=== PATIENT | male | born 1955 | race Caucasian/White ===

== ENCOUNTER 2024-06-28 08:51 | Emergency (ER) | payer MEDICARE, SELFPAY ==
[2024-06-28 08:58] VITALS: BP 179/89; PULSE 76; TEMP 36.6; O2SAT 99; BMI 25.8
[2024-06-28] MEDS: KETOROLAC TROMETHAMINE 30 MG/ML VIAL IM (10:09)
[2024-06-28] MEDS: ORPHENADRINE 60 MG/ 2 ML VIAL IM (10:09)
--- NOTE | 2024-06-28 10:10 | ED_ITS ---
HPI HPI - Back Pain/Injury General Chief Complaint: Back Pain/Injury Stated Complaint: BACK PAIN, LEG PAIN Time Seen by Provider: 06/28/24 09:02 Source: patient Mode of arrival: walk-in Limitations: no limitations History of Present Illness HPI Narrative: 68-year-old male to the emergency department chief complaint of sciatica. Patient reports he has a long history of sciatica. Reports that last acted up a few weeks ago and lasted approximately 2 weeks. Patient reports he is in town visiting family from [place]. He reports that he had a flareup of his typical sciatica. No numbness, weakness, tingling. He has a shooting pain down his buttock that radiates into his lower leg. He denies any bowel bladder incontinence or retention. Denies any saddle anesthesia. No history of cancer. No recent falls or injuries. Patient to the emergency department today as his is flying out to drive him back to [place]. That it hurts to sit and he does not believe he is going to build to make it without some medications. Related Data Home Medications ?Medication ?Instructions ?Recorded ?Confirmed empagliflozin 25 mg tablet 25 mg PO DAILY 06/28/24 06/28/24 (Jardiance) fenofibrate nanocrystallized 48 mg 48 mg PO DAILY 06/28/24 06/28/24 tablet losartan 100 1 tab PO DAILY 06/28/24 06/28/24 mg-hydrochlorothiazide 12.5 mg tablet metoprolol succinate 25 mg 25 mg PO DAILY 06/28/24 06/28/24 tablet,extended release 24 hr rosuvastatin 10 mg tablet 10 mg PO DAILY 06/28/24 06/28/24 sitagliptin phos 50 mg-metformin 1 tab PO DAILY 06/28/24 06/28/24 ER 1,000 mg tablet,extend rel 24h mp (Janumet XR) Previous Rx's ?Medication ?Instructions ?Recorded cyclobenzaprine 5 mg tablet 5 mg PO BID PRN muscle spasm #14 06/28/24 tabs lidocaine 5 % topical patch See Rx Instructions topical 06/28/24 (Lidoderm) .COMPLEX #7 ea methylprednisolone 4 mg tablets in 4 mg PO DAILY #21 ea 06/28/24 a dose pack (Medrol (Pee)) naproxen 500 mg tablet 500 mg PO BID PRN pain #14 tabs 06/28/24 oxycodone-acetaminophen 5 mg-325 1 tab PO Q6H PRN pain #8 tabs 06/28/24 mg tablet (Percocet) Allergies Allergy/AdvReac Type Severity Reaction Status Date / Time No Known Drug Allergies Allergy Verified 06/28/24 08:58 Opioid HPI Opioid Management Most Recent Opioid Data: No Data to Display Review of Systems ROS Status of ROS 10 or more systems reviewed and unremark able except as noted in history and below Exam Narrative Exam Narrative: VITALS: I have reviewed the triage vital signs. GENERAL: Well developed, well appearing adult in no acute distress. NEURO: Alert and oriented. Moves all extremities. Face is symmetric and expressive. Patellar reflexes brisk and equal bilaterally. Normal gait. Plantar flexion/dorsiflexion, knee flexion/extension, hip flexion/extension are grossly intact with 5/5 strength. Sensation is intact across the bilateral lower extremities. Left-sided SI tenderness. SPINE: No midline cervical, thoracic, or lumbar tenderness. No step-off or deformities. No paraspinal muscle tenderness or increased tone. EYES: PERRL. No scleral icterus or conjunctival injection. No discharge. HENT: Normocephalic, atraumatic. Hearing is grossly intact. Nares grossly patent and without discharge. Mucous membranes moist. NECK: No JVD. Patient moves neck without restriction. CARDIO: Rhythm regular. Normal rate. No murmur, rub, or gallop. Pulses equal bilaterally in the upper and lower extremity. No lower extremity edema. PULM: Lungs clear to auscultation in all almanzar. No wheezes, rales, or rhonchi. No conversational dyspnea. No splinting, stridor, or accessory muscle use. GI/: Abdomen is soft and non-tender. Normoactive bowel sounds. No flank tenderness. EXTREMITIES: Symmetric muscle bulk. No joint swelling. No clubbing, cyanosis, or deformity. SKIN: Warm and dry. Normal turgor. No rash or lesions appreciated. PSYCH: Mood, affect, and interaction is appropriate to the setting. Constitutional Vital Signs, click to edit/add: Last Vital Signs Temp 97.8 F 06/28/24 08:58 Pulse 76 06/28/24 08:58 Resp 18 06/28/24 08:58 BP 179/89 H 06/28/24 08:58 Pulse Ox 99 06/28/24 08:58 O2 Del Method Room Air 06/28/24 08:58 Course Vital Signs Vital signs: Vital Signs Temperature 97.8 F 06/28/24 08:58 Pulse Rate 76 06/28/24 08:58 Respiratory Rate 18 06/28/24 08:58 Blood Pressure 179/89 H 06/28/24 08:58 Pulse Oximetry 99 06/28/24 08:58 Oxygen Delivery Method Room Air 06/28/24 08:58 Temperature 97.8 F 06/28/24 08:58 Pulse Rate 76 06/28/24 08:58 Respiratory Rate 18 06/28/24 08:58 Blood Pressure 179/89 H 06/28/24 08:58 Pulse Oximetry 99 06/28/24 08:58 Oxygen Delivery Method Room Air 06/28/24 08:58 MDM - Back Pain/Injury MDM Narrative Medical decision making narrative: Well-appearing 68-year-old male to the emergency department with typical sciatic symptoms for him. Vital stable, the patient is afebrile. He is neurovascularly intact. There are no red flags by history or exam for cord compressive lesion. No indication for imaging at this time. Patient agrees with this plan. Will treat symptomatically. Norflex and Toradol given intramuscularly in the ER. He is a very well-controlled diabetic. Risk-benefit discussion of steroids was had. Risk-benefit discussion of NSAIDs was had. Risk-benefit discussion of opiate medication was had. Decision was made to treat with a Medrol Dosepak, naproxen, Lidoderm patch, Flexeril, oxycodone as needed. [place] was [place] at time of encounter/ [place]. Return precautions were discussed. All questions were answered. Patient was discharged home. Medical Records Attestation: I reviewed the patient's medical records. Lab Data Attestation: I reviewed the patient's lab results. Discharge Plan Discharge Stand Alone Forms: Portal Instructions Chief Complaint: Back Pain/Injury Clinical Impression: Sciatica Patient Disposition: Home, Self-Care Time of Disposition Decision: 10:00 Condition: Good Mode of Transportation: Private Vehicle Prescriptions / Home Meds: New methylprednisolone [Medrol (Pee)] 4 mg tablets,dose pack 4 mg PO DAILY Qty: 21 0RF Rx Instructions: TAKE PER DOSEPAK INSTRUCTIONS naproxen 500 mg tablet 500 mg PO BID PRN (Reason: pain) Qty: 14 0RF lidocaine [Lidoderm] 5 % adhesive patch,medicated See Rx Instructions topical .COMPLEX Qty: 7 0RF Rx Instructions: leave on most painful area for up to 12 hrs cyclobenzaprine 5 mg tablet 5 mg PO BID PRN (Reason: muscle spasm) Qty: 14 0RF oxycodone-acetaminophen [Percocet] 5-325 mg tablet 1 tab PO Q6H PRN (Reason: pain) Qty: 8 0RF No Action Jardiance 25 mg tablet 25 mg PO DAILY fenofibrate nanocrystallized 48 mg tablet 48 mg PO DAILY metoprolol succinate 25 mg tablet extended release 24 hr 25 mg PO DAILY rosuvastatin 10 mg tablet 10 mg PO DAILY Janumet XR 50-1,000 mg tablet, ER multiphase 24 hr 1 tab PO DAILY losartan-hydrochlorothiazide 100-12.5 mg tablet 1 tab PO DAILY Print Language: Uzbek Instructions: Sciatica (ED) Additional Instructions: Call the office of your primary care doctor to arrange for follow-up within the above-stated timeframe. Your ED visit was focused on your acute issue and does not replace primary care. You should review your labs, imaging, and diagnoses from this ED visit with your primary care physician. There may be non-emergent/ incidental findings that need further evaluation. You should review your vital signs including blood pressure with your PCP. If you were prescribed medications you should discuss possible side-effects and drug interactions with your pharmacist. Call 911 or go to the nearest Emergency Department if you develop any new or worsening symptoms. Seek immediate medical attention if you develop: increasing pain, numbness, ti ngling, weakness, loss of motion in your arms or legs, loss of control of your urine or stool, fever, abdominal pain, chest pain, shortness of breath, or any new or worsening symptoms. Referrals: Physician,Non-Staff, MD [Primary Care Provider] - 1 week
== END 2024-06-28 10:17 | disposition home or self-care (01) ==
PROVIDERS: Emergency Provider Student in an Organized Health Care Education/Training Program
DX: M54.30 Sciatica, unspecified side (principal)
CPT/HCPCS: 96372; 99284; J1885; J2360